=== PATIENT | female | born 1995 | race Caucasian/White ===

== ENCOUNTER 2017-05-20 09:46 | Emergency (ER) | payer OTHER ==
[~2017-05-20] VITALS: Ht 160 cm; Wt 104.3 kg
[~2017-05-20 09:46] MED LIST: TRINATE TABLET1 TAB PO
[2017-05-20] MEDS ORDERED: AMOXICILLIN500 M1 PO (10:41)
[2017-05-20 10:45] VITALS: BP 125/75
== END 2017-05-20 10:51 | disposition home or self-care (01) ==
LOC: ER 09:46
DX: H66.90 Otitis media, unspecified, unspecified ear (principal); F17.210 Nicotine dependence, cigarettes, uncomplicated

== ENCOUNTER 2017-09-12 15:50 | Emergency (ER) | payer OTHER ==
[~2017-09-12] VITALS: Ht 157.5 cm; Wt 109.3 kg
--- NOTE | ~2017-09-12 | EKG ---
[address] [place] [place] [address] ELECTROCARDIOGRAM REPORT Name: NORA HOPE Room #: REG ARIEL Luther#: [id number] Admission: 09/12/17 Attend Phys: Discharge: Date of : [birth year] Report #: [id number] THIS REPORT FOR: //name// [facility] ED Test Date: 2017-09-12 Test Time: 17:00:15 Pat Name: NORA HOPE Department: Room: Gender: F Packaging Clerk: as : 1995 Requested By: Sybil Monsivais Order Number: [id number] MD: Jl Bullock Measurements Intervals [place] Rate: 91 P: 42 OK: 124 QRS: 12 QRSD: 89 T: -3 QT: 345 QTc: 425 Interpretive Statements Sinus rhythm No previous ECG available for comparison Electronically Signed On 09-12-2017 21:39:12 CDT by Jl Bullock [email or web address] <ELECTRONICALLY SIGNED> By: Jl Bullock MD 09/12/17 2139 1700 1700 Jl Bullock MD /EPI
[~2017-09-12 15:50] MED LIST changes: +AMOXICILLIN500 M1 PO
[2017-09-12 16:38] LABS: URINE BILIRUBIN NEGATIVE (Negative); URINE BLOOD NEGATIVE (Negative); URINE CLARITY CLEAR; URINE COLOR YELLOW; URINE GLUCOSE-RANDOM* NEGATIVE (Negative); URINE KETONES NEGATIVE (Negative); URINE LEUKOCYTES-REFLEX NEGATIVE (Negative); URINE NITRITE-REFLEX NEGATIVE (Negative); URINE PROTEIN (DIPSTICK) NEGATIVE (Negative); URINE SPECIFIC GRAVITY <= 1.005 (1.005-1.035); URINE UROBILINOGEN 0.2 E.U./dl (0.2-1.0)
[2017-09-12 17:09] LABS: ABSOLUTE NEUTROPHILS 17.1 thou/uL (1.4-8.2); BASOPHILS 0.6 % (0.0-2.0); EOSINOPHILS 0.1 % (0.0-3.0); HEMATOCRIT 41.7 % (37.0-47.0); LYMPHOCYTES 9.7 % (24.0-44.0); MCH 29.2 pg (26.0-34.0); MCHC 33.7 g/dL (28.0-37.0); MCV 86.7 fL (80.0-100.0); MONOCYTES 4.2 % (1.0-8.0); PLATELET COUNT 187 thou/uL (150-400); POLYS 85.4 % (36.0-66.0); RDW 13.3 % (10.5-14.5)
[2017-09-12 17:18] LABS: CALCIUM 9.1 mg/dL (8.5-10.1); CREATININE 0.6 mg/dL (0.6-1.0); POTASSIUM 3.8 mmol/L (3.5-5.1)
[2017-09-12 17:23] LABS: ALBUMIN 3.6 g/dL (3.4-5.0); TOTAL BILIRUBIN 0.6 mg/dL (<0.1-1.0); TOTAL PROTEIN 7.2 g/dL (6.4-8.2)
[2017-09-12] MEDS ORDERED: IBUPROFEN 800800 M1 PO (19:18)
[2017-09-12 21:00] VITALS: BP 122/72
== END 2017-09-12 20:52 | disposition home or self-care (01) ==
LOC: ER 15:50
PROVIDERS: Nurse Practitioner Family
DX: B34.9 Viral infection, unspecified (principal); D72.829 Elevated white blood cell count, unspecified; F17.210 Nicotine dependence, cigarettes, uncomplicated

== ENCOUNTER 2017-09-15 12:04 | Emergency (ER) | payer OTHER ==
[~2017-09-15] VITALS: Ht 157.5 cm; Wt 109.3 kg
[~2017-09-15 12:04] MED LIST changes: +IBUPROFEN 800800 M1 PO
[2017-09-15 13:15] LABS: URINE BILIRUBIN NEGATIVE (Negative); URINE BLOOD NEGATIVE (Negative); URINE CLARITY CLEAR; URINE COLOR YELLOW; URINE GLUCOSE-RANDOM* NEGATIVE (Negative); URINE KETONES NEGATIVE (Negative); URINE LEUKOCYTES-REFLEX NEGATIVE (Negative); URINE NITRITE-REFLEX NEGATIVE (Negative); URINE PROTEIN (DIPSTICK) NEGATIVE (Negative); URINE SPECIFIC GRAVITY 1.025 (1.005-1.035); URINE UROBILINOGEN 0.2 E.U./dl (0.2-1.0)
[2017-09-15 13:32] LABS: ABSOLUTE NEUTROPHILS 6.4 thou/uL (1.4-8.2); BASOPHILS 0.7 % (0.0-2.0); EOSINOPHILS 1.1 % (0.0-3.0); HEMATOCRIT 40.7 % (37.0-47.0); HEMOGLOBIN 13.7 gm/dL (12.0-15.0); LYMPHOCYTES 35.2 % (24.0-44.0); MCH 29.6 pg (26.0-34.0); MCHC 33.6 g/dL (28.0-37.0); MONOCYTES 4.7 % (1.0-8.0); POLYS 58.3 % (36.0-66.0); RBC 4.63 mil/uL (4.20-5.00); RDW 13.1 % (10.5-14.5); WBC 10.9 thou/uL (4.0-11.0)
[2017-09-15 13:43] LABS: CALCIUM 8.6 mg/dL (8.5-10.1); CREATININE 0.6 mg/dL (0.6-1.0); POTASSIUM 4.4 mmol/L (3.5-5.1)
[2017-09-15 13:49] LABS: ALBUMIN 3.2 g/dL (3.4-5.0); TOTAL BILIRUBIN 0.3 mg/dL (<0.1-1.0)
[2017-09-15 13:57] LABS: PLATELET COUNT 121 thou/uL (150-400)
[2017-09-15] MEDS ORDERED: AMOXICILLIN875 MG PO (14:30)
[2017-09-15 14:42] VITALS: BP 118/68
== END 2017-09-15 14:43 | disposition home or self-care (01) ==
LOC: ER 12:04
PROVIDERS: Emergency Medicine
DX: H66.92 Otitis media, unspecified, left ear (principal); R11.2 Nausea with vomiting, unspecified; R53.81 Other malaise; R05 Cough; M54.2 Cervicalgia; F17.210 Nicotine dependence, cigarettes, uncomplicated

== ENCOUNTER 2020-11-22 17:58 | Emergency (ER) | payer OTHER ==
[~2020-11-22] VITALS: Ht 154.9 cm; Wt 113.4 kg
[~2020-11-22 17:58] MED LIST changes: +AMOXICILLIN875 MG PO
[2020-11-22] MEDS ORDERED: METFORMIN HCL500 MG PO (18:04)
[2020-11-22 18:56] LABS: URINE BILIRUBIN NEGATIVE (Negative); URINE BLOOD TRACE (Negative); URINE CLARITY CLEAR; URINE COLOR YELLOW; URINE GLUCOSE-RANDOM* 3+ (Negative); URINE KETONES TRACE (Negative); URINE LEUKOCYTES-REFLEX NEGATIVE (Negative); URINE NITRITE-REFLEX NEGATIVE (Negative); URINE PROTEIN (DIPSTICK) NEGATIVE (Negative); URINE SPECIFIC GRAVITY 1.025 (1.005-1.035); URINE UROBILINOGEN 0.2 E.U./dl (0.2-1.0)
[2020-11-22 19:35] VITALS: BP 150/90
== END 2020-11-22 19:35 | disposition home or self-care (01) ==
LOC: ER 17:58
PROVIDERS: Emergency Medicine
DX: M54.5 Low back pain (principal); J02.9 Acute pharyngitis, unspecified; E11.9 Type 2 diabetes mellitus without complications; F17.210 Nicotine dependence, cigarettes, uncomplicated; Z79.899 Other long term (current) drug therapy